=== PATIENT | male | born 1960 | race Caucasian/White ===

== ENCOUNTER → 2020-08-31 11:00 | Outpatient (CLI) | payer BC, SELFPAY ==
--- NOTE | 2020-08-31 11:12 | MRI_ITS ---
STUDY: MRI ABDOMEN WITH AND WITHOUT CONTRAST REASON FOR EXAM: Male, 59 years old. ANGIOMYOLIPOMA OF RT KIDNEY TECHNIQUE: Standardized fat and water weighted pulse sequences were obtained in all 3 orthogonal planes post contrast administration. IV 25cc dotarem was administered for the contrast portion of the examination. COMPARISON: 13 August 2020 images are electronically degraded and not evaluable. Prior report is not in the system. FINDINGS: Prior CT abdomen images are electronically degraded and not evaluable. Please consider reloading the original study to allow for comparison which can be helpful. Report is not available. Current study is degraded by motion/respiratory artifact and image noise. Partial diagnostic information is available. There is a 3.5 cm right renal cortical partially exophytic interpolar region heterogeneous lesion containing large amount of fat with mild enhancement. Surrounding structures are normal. There is a small 1 cm upper pole proteinaceous cyst. Contralateral left kidney is normal. There is a benign 3.3 cm right adrenal lesion probably containing fat. In and out of phase pulse sequences are suboptimal. This probably no signal dropout. Left adrenal is normal. Remainder of partially visualized abdominal structures are unremarkable. MRI/MRI Abd WITH and W/O Contrast IMPRESSION: 1. Technically suboptimal exam. 2. 3.5 cm right renal lesion, possibly angiolipoma versus fat-containing renal cell carcinoma. 3. 3 cm right adrenal lesion, possibly atypical myolipoma versus lipid poor adenoma versus the pheochromocytoma. 3. Given presence of 2 atypical lesions and suboptimal exam recommend short-term follow-up in [address] renal/adrenal protocol. An attempt to provide prior CT would be helpful. Electronically Signed: Ortiz Griffith MD at 18:08 EST Tel , Service support ,
--- NOTE | 2020-08-31 11:16 | RAD_ITS ---
STUDY: X-RAY - ORBITS REASON FOR EXAM: Male, 59 years old. FB TECHNIQUE: 2 view(s) of the orbits were obtained. COMPARISON: None. FINDINGS: Normal bilateral orbits without a metallic orbital foreign body. Normal visualized facial bones. Normal paranasal sinuses. The soft tissue structures are unremarkable. RAD/Orbits for Foreign Body IMPRESSION: No demonstrated metallic orbital foreign body. The patient is cleared for an MRI examination. Electronically Signed: Dami Saucedo MD at 11:39 EST , Service support ,
== END ==
PROVIDERS: PCP Family Medicine; Referring Provider Nurse Practitioner Adult Health; Visit Provider Nurse Practitioner Adult Health
DX: D41.00 Neoplasm of uncertain behavior of unspecified kidney (principal)
CPT/HCPCS: 70030; 74183; A9575

== ENCOUNTER → 2020-09-10 11:48 | Outpatient (CLI) | payer BC, SELFPAY ==
[2020-09-17 20:07] LABS: Aldosterone, Serum 4.3 ng/dL (0.0-30.0)
[2020-09-17 20:39] LABS: Renin, Plasma 1.105 ng/mL/hr (0.167-5.380)
== END ==
PROVIDERS: PCP Family Medicine; Referring Provider Urology; Visit Provider Urology
DX: D35.01 Benign neoplasm of right adrenal gland (principal); D30.00 Benign neoplasm of unspecified kidney
CPT/HCPCS: 36415; 82088; 82360; 84244

== ENCOUNTER → 2020-09-17 | Outpatient (CLI) | payer BC, SELFPAY ==
[2020-09-24 20:07] LABS: Cortisol, Urinary Free 23 ug/L (Undefined)
[2020-09-24 20:40] LABS: Cortisol, Free 24Ur 45 ug/24 hr (5-64)
== END | disposition home or self-care (01) ==
LOC: LABSPEC 07:44
PROVIDERS: PCP Family Medicine; Referring Provider Urology; Visit Provider Urology
DX: D35.01 Benign neoplasm of right adrenal gland (principal)
CPT/HCPCS: 81050; 82530

== ENCOUNTER → 2021-04-22 07:49 | Outpatient (CLI) | payer BC, SELFPAY ==
--- NOTE | 2021-04-22 07:52 | CT_ITS ---
STUDY: CT ABDOMEN AND PELVIS WITH CONTRAST REASON FOR EXAM: Male, 60 years old. BENIGN NEOPLASM OF KIDNEY. Follow-up examination. RADIATION DOSAGE (If Supplied By Facility): CTDIvol = ( 18.18 ) mGy, DLP = ( 2409.12 ) mGycm TECHNIQUE: Transaxial images were obtained from the dome of the diaphragm to the symphysis pubis without oral contrast. IV 100mL Isovue-[id number] was administered. Sagittal and coronal images were reconstructed. Individualized dose optimization techniques were used for this CT. COMPARISON: Comparison is made with prior MRI of the abdomen dated 08/31/2020. FINDINGS: The visualized lung bases are unremarkable. The visualized portions of the heart are within normal limits. There is decreased attenuation of the liver consistent with steatosis. Normal gallbladder and extrahepatic biliary system. Normal spleen. Normal pancreas. There is a small, circumscribed, smooth, low attenuation right adrenal mass, consistent with an adrenal adenoma. This measures 2.6 cm x 3.1 cm. Normal left adrenal gland. There is a 3.5 cm by 3.7 cm fat-containing nodule in the lateral aspect of the midportion of the right kidney. This most likely represents an angiomyolipoma. There is also evidence of a 1.7 cm cyst in the upper posterior aspect of the upper pole of the right kidney. 3 mm nonobstructive calculus in the lower pole calyx of the left kidney. Normal visualized stomach. Normal small intestine. There are scattered colonic diverticula consistent with diverticulosis. The appendix is visualized and appears normal. There is scattered atherosclerotic calcification of the abdominal aorta, without a demonstrated aneurysm. Normal inferior vena cava. Normal retroperitoneum. Normal urinary bladder. Normal abdominal wall. Normal osseous structures. CT/Abdomen/Pelvis W IV Cont ONLY IMPRESSION: 3.5 cm x 3.7 cm fat-containing nodule in the midportion of the right kidney suggestive of angiomyolipoma. This is unchanged. 2.6 cm x 3.1 cm fat-containing nodule in the right adrenal gland suggestive of a right adrenal adenoma. Electronically Signed: Dami Saucedo MD at 15:13 EDT , Service support ,
[2021-04-22 08:15] LABS: CREATININE FINGERSTICK < 0.6 mg/dL (0.70-1.30); EGFR FINGERSTICK > 60.0000 mL/min (>60)
== END ==
PROVIDERS: PCP Family Medicine; Referring Provider Urology; Visit Provider Urology
DX: D30.00 Benign neoplasm of unspecified kidney (principal)
CPT/HCPCS: 74177; Q9967